=== PATIENT | female | born 1990 | race Caucasian/White ===

== ENCOUNTER 2016-11-20 00:29 | Emergency (ER) | payer OTHER ==
[~2016-11-20] VITALS: Ht 157.5 cm; Wt 72.7 kg
[2016-11-20 00:35] VITALS: BP 119/82; PULSE 115; RESP 20; O2SAT 98
--- NOTE | 2016-11-20 00:46 | ED.REPORT ---
HPI-Extremity Problem Upper Date of Service Nov 20, 2016 ED Provider: Jerrod Billingsley MD Pt is a 26 year old female with a history of IV drug use (heroin) who presents to the ED complaining of right hand swelling onset yesterday morning. She c/o associated right hand pain and rash. She denies injury and any other symptoms. Pt reports that she woke up and her hand was swollen, stating that the swelling has increased and radiated up to her forearm throughout the day. Her last menstruation was at the end of last month. Active injction drug user. Per pt, her last heroin use was yesterday at 17:00. States she has not injected into R UE recently. Nursing Notes Stated Complaint: RT HAND SWELLING Chief Complaint: General Complaint Nursing Notes Reviewed: Yes Allergies: Coded Allergies: acetaminophen (Verified Allergy, Unknown, 11/20/16) General Time Seen by MD: 00:45 Chief Complaint Other (Right hand swelling) Hx Obtained From: Patient Arrived By: Walk-in Onset Occurred: Yesterday Symptom Duration: Since onset Location: : Forearm right: Hand right: Wrist right Quality: Painful Severity: Current: Moderate Severity: Maximum: Moderate Recent Healthcare: No recent doctor visit, No recent hospitalization Similar Sx Previous: No Past Medical History Past Medical History Reports: IV Drug use Past Surgical History Reports: Tonsillectomy Smoking History Current Every Day Smoker Social History Alcohol Use: Denies alcohol use Drug Use: IV drugs (Heroin) Other Social History: Good social support Ambulatory Status Independent Review of Systems Denies right hand injury Constitutional: Denies: Fever Musculoskeletal: Reports: Extremity pain, Extremity swelling Skin: Reports Rash Complete sys rev & neg: except as marked. Respiratory: Denies: Non-productive cough Physical Exam Initial Vital Signs Vital Signs (First) Date Time Temp Pulse Resp B/P Pulse Ox O2 Delivery O2 Flow Rate FiO2 11/20/16 00:35 36.8 115 20 119/82 98 Room Air Initial VS: Reviewed Neck: Full range of motion Lower Extremities: Vascular intact, Neuro intact Skin: Warm, Dry Neurologic: Alert, Oriented, Nonfocal Psychiatric: Mood/affect normal, Behavior normal General/Constitutional: Awake, Alert, Cooperative, Not toxic appearing Respiratory / Chest: Atraumatic, Breath sounds NL, Breath sounds = bilat Cardiovascular: Regular rhythm, Heart sounds NL Heart Rate / Rhythm: Positive: Tachycardia Wrist / Hand: Neurologic intact, Vascular intact RIGHT: Axillary adenopathy. Round and diffusely swollen on the dorsum. Tenderness to wrist. Tolerates passive radial motion of her fingers well. Pulses are intact. Rash present. Head / Eyes: Atraumatic, Normocephalic 3mm pupils. Interpretation & Diagnostics Lab Results Interpretation Result Diagram: 11/20/16 0140 11/20/16 0140 Test 11/20/16 01:40 White Blood Count 7.6th/mm3 (3.8-10.1) Red Blood Count 4.63mil/mm3 (3.90-5.20) Hemoglobin 12.6g/dL (12.0-15.6) Hematocrit 37.4% (35.0-46.0) Mean Corpuscular Volume 80.8fL (81-100) Mean Corpuscular Hemoglobin 27.2pg (27.0-35.0) Mean Corpuscular Hemoglobin Concent 33.7% (32.0-37.0) Red Cell Distribution Width 14.0% (12.3-15.4) Platelet Count 232bil/L (150-400) Neutrophils (%) (Auto) 46.5% (40-74) Lymphocytes (%) (Auto) 35.8% (14-46) Monocytes (%) (Auto) 13.3% (4-12) Eosinophils (%) (Auto) 3.2% (0-5) Basophils (%) (Auto) 0.7% (0-3) Sodium Level 137mEq/L (134-144) Potassium Level 3.7mEq/L (3.5-5.2) Chloride Level 100mEq/L (97-108) Carbon Dioxide Level 22mmol/L (18-29) Blood Urea Nitrogen 15mg/dL (6-20) Creatinine 0.66mg/dL (0.57-1.00) Estimat Glomerular Filtration Rate 153mL/min (>59) Glucose Level 125mg/dL (60-99) Lactic Acid Level 1.4mmol/L (0.4-2.0) Calcium Level 8.9mg/dL (8.5-10.1) Total Bilirubin 0.3mg/dL (0.0-1.2) Aspartate Amino Transf (AST/SGOT) 20U/L (0-50) Alanine Aminotransferase (ALT/SGPT) 12U/L (0-32) Alkaline Phosphatase 66U/L (25-150) Total Protein 7.4g/dL (6.4-8.4) Albumin 3.9g/dL (3.4-5.0) X-Ray Interpretation Xray Interpretation: Soft tissue swelling and retained metallic form body overlying 5th metacarpal. No fracture. No signs of osteoarthritis. Study Performed: 3 view X-Ray Ordered: Wrist right, Hand right Interpretation / Wet Read by: Wet read ED physician Re-Eval/Medical Decision Source of Hx: Old records Re-Evaluation/Progress : Time of Eval: 02:57 Re-Evaluation/Progress Note: Pt rechecked. Informed pt of plan for discharge. Pt understands and agrees with plan for discharge. F/U instructions and RTER warnings given. All questions addressed. Counseled Regarding: Diagnosis, Lab results, Need for follow-up, When/why to return to ED Discharge & Departure Impression: Primary Impression: Cellulitis of hand, right Additional Impression: Uses drugs by injection Disposition: Home Discharge Condition All VS Reviewed: Yes Condition: Stable Additional Instructions: ED evaluation included interview, exam, labs x-rays and ultrasound of your R arm. This appears to be a soft tissue infection. We started trimethoprim and cephalexen, take these as prescribed until gone. Elevate R arm above level of heart when able. Return to ED for increasing pain or swelling or fevers. Follow up with primary care next week. It is important that you not use heroin. Consider following up for treatment. Referrals: [facility] Scribe Attestation Portions of this note were transcribed by Nancy Brewer. I, Dr. Billingsley personally performed the history, physical exam and medical decision-making; I reviewed and confirmed the accuracy of the information in the transcribed note. Signed by : Dayo Ayoub, 11/19/16 and 01:30. copies to: [facility] Jerrod Billingsley MD Nov 20, 2016 00:46 Nancy Salcedo Nov 20, 2016 00:52
[2016-11-20] MEDS ORDERED: 0.9% Sodium Chloride 1,000 ML IV ONE (01:01)
[2016-11-20 01:49] LABS: BASOPHILS % (AUTO) 0.7 % (0-3); EOSINOPHILS % (AUTO) 3.2 % (0-5); MONOCYTES % (AUTO) 13.3 % (4-12); Mean Corpuscular Hemoglobin 27.2 pg (27.0-35.0); Mean Corpuscular Volume 80.8 fL (81-100); NEUTROPHILS % (AUTO) 46.5 % (40-74); Platelet Count 232 bil/L (150-400)
[2016-11-20] MEDS ORDERED: _Trimethoprim-Sulfa 160/800 mg Tablet PO SCH (02:30)
[2016-11-20 03:22] VITALS: PULSE 78; RESP 16
--- NOTE | 2016-11-20 07:29 | DRSVH ---
PROCEDURE: X-RAY RIGHT HAND, MINIMUM THREE VIEWS ([id number]) INDICATIONS: 26 year-old female with right hand pain and swelling. TECHNIQUE: 3 views of the hand(s) acquired. COMPARISON: [facility], CR, HAND 3V RIGHT, 02/04/2011, 16:31. [facility], CR, HAND MIN 3VW (RT), 12/02/2008, 13:49. FINDINGS: Bones: No acute fractures or dislocations. Nonacute healed fifth metacarpal shaft fracture deformit y is again noted. Carpal bones are normally aligned. No suspicious bony lesions. Soft tissues: 1.4 cm linear soft tissue metallic foreign body is now situated adjacent to the fifth m etacarpal shaft. There is significant right hand dorsal soft tissue swelling. No soft tissue gas. IMPRESSION: 1.4 cm linear soft tissue foreign body adjacent to the fifth metacarpal shaft. Significant dorsal rig ht hand soft tissue swelling would be consistent with cellulitis. Dictated by: Rohit Castro M.D. on 11/20/2016 at 7:25 Approved by: Rohit Castro M.D. on 11/20/2016 at 7:27
--- NOTE | 2016-11-20 07:31 | DRSVH ---
PROCEDURE: X-RAY RIGHT WRIST COMPLETE, MINIMUM THREE VIEWS ([id number]) INDICATIONS: 26 year-old female with right hand and wrist swelling. TECHNIQUE: 4 views of the wrist were acquired. COMPARISON: [facility], CR, XR HAND 3VW RT, 11/20/2016, 1:01. [facility], CR, HAND 3V RIGHT, 02/04/2011, 16:31. [facility], [place], HAND MIN 3VW (RT), 12/02/2008, 13:49. FINDINGS: Bones: No fractures or dislocations. No bony erosions or destruction. No suspicious bony lesions. Scaphoid view: Scaphoid appears intact. Soft tissues: 1.4 cm linear metallic soft tissue foreign body is again noted adjacent to the fifth me tacarpal shaft. No soft tissue gas. There is significant dorsal right hand and wrist soft tissue swel ling. The IMPRESSION: 1. No acute or degenerative bony abnormalities of the right wrist. 2. 1.4 cm linear metallic soft tissue foreign body adjacent to the fifth metacarpal shaft. Dictated by: Rohit Castro M.D. on 11/20/2016 at 7:28 Approved by: Rohit Castro M.D. on 11/20/2016 at 7:29
--- NOTE | 2016-11-20 07:54 | DRSVH ---
PROCEDURE: US VENOUS ARM DUPLEX UNILATERAL, RIGHT INDICATIONS: 26 year-old female with right upper extremity pain and swelling. TECHNIQUE: Real-time imaging, as well as color and pulse Doppler interrogation, was performed of the right upper extremity deep veins from the inferior neck to the antecubital fossa. COMPARISON: None. FINDINGS: Preliminary interpretation rendered by [facility]. The internal jugular vein, visualized portions of the subclavian vein, axillary, and brachial veins a re free of intraluminal thrombus. Where physically possible, the veins are normally compressible. C olor and pulse Doppler demonstrate normal intraluminal flow, with expected phasicity and pulsatility. Additional scanning of the cephalic and basilic veins of the superficial system demonstrate normal compressibility, without thrombus. IMPRESSION: No sonographic evidence for right upper extremity deep venous thrombosis. No significant discrepancy with preliminary [facility] report. Dictated by: Rohit Castro M.D. on 11/20/2016 at 7:51 Approved by: Rohit Castro M.D. on 11/20/2016 at 7:52
[2016-11-20] MEDS ORDERED: _Cephalexin 500 mg Capsule PO SCH (08:30)
== END 2016-11-20 03:31 | disposition home or self-care (01) ==
LOC: SED 00:29
DX: L03.113 Cellulitis of right upper limb (principal); F11.90 Opioid use, unspecified, uncomplicated; F17.200 Nicotine dependence, unspecified, uncomplicated; Z88.8 Allergy status to other drugs, medicaments and biological substances
CPT/HCPCS: 36415; 73110; 73130; 80053; 83605; 85025; 87040; 87077; 93971; 99285; J7030